=== PATIENT | female | born 1945 | race Caucasian/White ===

== ENCOUNTER 2021-11-13 08:57 | Observation (INO) | payer OTHER ==
[2021-11-08 16:59] LABS: BASOPHILS % (AUTO) 0.2 % (0.0-5.0); EOSINOPHILS % (AUTO) 1.6 % (0.0-8.0); HEMATOCRIT 37.5 % (36-48); LYMPHOCYTES % (AUTO) 22.8 % (21.0-51.0); MEAN CORPUSCULAR HEMOGLOBIN 34.1 pg (27.0-33.0); MEAN CORPUSCULAR HGB CONC 32.3 g/dL (32.0-36.0); MEAN CORPUSCULAR VOLUME 105.6 fL (79-99); NEUTROPHILS % (AUTO) 63.9 % (40.0-77.0); PLATELET COUNT (AUTO) 131 K/uL (130-400); RED BLOOD CELL COUNT(AUTO) 3.55 MIL/uL (4.00-5.50); RED CELL DISTRIBUTION WIDTH 12.2 % (11.0-15.5); WHITE BLOOD COUNT (AUTO) 4.3 K/uL (4.8-10.8)
[2021-11-08 17:14] LABS: INR 1.15 (0.85-1.15); PROTHROMBIN TIME 12.4 SEC (9.6-11.6)
[2021-11-08 17:15] LABS: PARTIAL THROMBOPLASTIN TIME 28.1 SEC (26.3-35.5)
[2021-11-12 10:15] VITALS: BP 108/66
[~2021-11-13] VITALS: Ht 154.9 cm; Wt 48.3 kg
[2021-11-13] VITALS (25 sets, daily range): BP systolic 113–155; BP diastolic 57–83
[~2021-11-13 08:57] MED LIST: CYCL-309 PO; DONE5TAB33 PO; DULO60CA64 PO; FAMO40TA7 PO; FURO20TA4 PO; ISOS60TA77 PO; MEMA28CA16 PO; META800T72 PO; METO-408 PO; POTA10CA44 PO; RAME8TAB8 PO; TRAM50TA4 PO
[2021-11-13] MEDS ORDERED: LACTATED RINGERS 1000ML 1,000 ML IV ONE (08:59)
[2021-11-13] MEDS: CEFAZOLIN SODIUM 1 GM VIAL ONE ×2 (09:28→12:41)
[2021-11-13] MEDS ORDERED: APIX2.5T PO (10:06)
[2021-11-13 10:11] LABS: CREATININE 0.8 mg/dL (0.5-1.5); POTASSIUM 4.1 mmol/L (3.5-5.1)
[2021-11-13] MEDS ORDERED: TRANEXAMIC ACID 1000MG/10ML ONE ×2 (10:53→11:41)
[2021-11-13] MEDS ORDERED: ROPIVACAINE 0.5% 5MG/ML 30ML IJ ONE (12:03)
[2021-11-13] MEDS ORDERED: LIDOCAINE PF 100MG/5ML (2%) SYRINGE 5ML ONE (12:04)
[2021-11-13] MEDS ORDERED: FENTANYL CITRATE PF 50 MCG/1 ML 2ML VIAL ONE (12:04)
[2021-11-13] MEDS ORDERED: ROCURONIUM 10MG/1ML SYR 10 MG/ML ML ONE (12:04)
[2021-11-13] MEDS ORDERED: MIDAZOLAM HCL 1 MG/ML 2ML VIAL ONE (12:04)
[2021-11-13] MEDS ORDERED: PROPOFOL 10 MG/ML 20ML VIAL IV ONE (12:04)
[2021-11-13] MEDS ORDERED: SUCCINYLCHOLINE CHLORIDE 20 MG/ML 10 ML VIAL ONE (12:04)
[2021-11-13] MEDS ORDERED: DEXAMETHASONE SOD PHOSPHATE 10MG/ML 1ML VIAL ONE (12:07)
[2021-11-13] MEDS ORDERED: EPHEDRINE SULFATE 50 MG/ML AMPULE ONE (12:34)
[2021-11-13] MEDS: METAXALONE PO SCH ×3 (13:00→19:47)
[2021-11-13] MEDS ORDERED: GLYCOPYRROLATE 1 MG/5 ML SYRINGE ONE (13:28)
[2021-11-13] MEDS ORDERED: NEOSTIGMINE 5MG/5ML SYR IV ONE (14:33)
[2021-11-13] MEDS ORDERED: HYDROCODONE/ACETAMINOPHEN 5/325 MG TAB PO PRN (15:00)
[2021-11-13] MEDS ORDERED: POTASSIUM CHLORIDE 10% ELIXIR 20 MEQ/15 ML UDCUP PO PRN (15:00)
[2021-11-13] MEDS ORDERED: POTASSIUM CHLORIDE 20MEQ/100ML 100 ML IV PRN (15:00)
[2021-11-13] MEDS ORDERED: OXYCODONE HCL 5 MG TAB PO PRN (15:00)
[2021-11-13] MEDS ORDERED: KCL 20 MEQ ERTAB PO PRN (15:00)
[2021-11-13] MEDS ORDERED: ONDANSETRON 4MG INJ IVP PRN (15:00)
[2021-11-13] MEDS ORDERED: 0.9%NACL 1000ML 1,000 ML IV SCH (15:00)
[2021-11-13] MEDS ORDERED: HYDROCODONE/ACETAMINOPHEN 10/325 MG TAB PO PRN (15:00)
[2021-11-13] MEDS ORDERED: LIDOCAINE HCL-MPF 1% 2ML VIAL IV PRN (15:00)
[2021-11-13] MEDS: ACETAMINOPHEN 500 MG TABLET PO SCH ×2 (15:00→19:47)
[2021-11-13] MEDS ORDERED: MORPHINE 4 MG SYG IVP PRN (15:00)
[2021-11-13] MEDS: TRAMADOL HCL 50 MG TABLET PO SCH ×2 (17:04→23:05)
[2021-11-13] MEDS ORDERED: DULOXETINE HCL 30 MG CAP ONE (19:24)
[2021-11-13] MEDS ORDERED: MEMANTINE HCL 5 MG TABLET ONE (19:25)
[2021-11-13] MEDS ORDERED: DONEPEZIL HCL 5 MG TAB ONE (19:25)
[2021-11-13] MEDS ORDERED: CYCLOBENZAPRINE HCL 10 MG TABLET ONE (19:25)
[2021-11-13] MEDS: CEFAZOLIN SODIUM 1 GM VIAL IVP SCH (19:45)
[2021-11-13] MEDS: MEMANTINE HCL 5 MG TABLET PO SCH (19:46)
[2021-11-13] MEDS: CYCLOBENZAPRINE HCL 10 MG TABLET PO SCH (19:46)
[2021-11-13] MEDS: METOPROLOL SUCCINATE 50 MG TAB.SR.24H PO SCH (19:54)
[2021-11-13] MEDS ORDERED: ROZEREM 8 MG PO SCH (21:00)
[2021-11-13] MEDS ORDERED: DONEPEZIL HCL 5 MG TAB PO SCH (21:00)
[2021-11-13] MEDS ORDERED: DULOXETINE HCL 30 MG CAP PO SCH (21:00)
[2021-11-14] VITALS: BP 112/54
[2021-11-14 04:00] VITALS: BP 118/58
[2021-11-14 04:08] LABS: HEMATOCRIT 34.4 % (36-48); MEAN CORPUSCULAR HEMOGLOBIN 34.2 pg (27.0-33.0); MEAN CORPUSCULAR HGB CONC 32.8 g/dL (32.0-36.0); MEAN CORPUSCULAR VOLUME 104.2 fL (79-99); RED BLOOD CELL COUNT(AUTO) 3.3 MIL/uL (4.00-5.50); RED CELL DISTRIBUTION WIDTH 12.2 % (11.0-15.5); WHITE BLOOD COUNT (AUTO) 5.7 K/uL (4.8-10.8)
[2021-11-14 04:55] LABS: CREATININE 0.9 mg/dL (0.5-1.5); POTASSIUM 4.3 mmol/L (3.5-5.1)
[2021-11-14] MEDS: CEFAZOLIN SODIUM 1 GM VIAL IVP SCH (04:59)
[2021-11-14] MEDS: TRAMADOL HCL 50 MG TABLET PO SCH ×2 (04:59→12:09)
[2021-11-14] MEDS: ACETAMINOPHEN 500 MG TABLET PO SCH (05:00)
[2021-11-14 07:35] VITALS: BP 130/64
[2021-11-14] MEDS: CYCLOBENZAPRINE HCL 10 MG TABLET PO SCH (08:57)
[2021-11-14] MEDS: METAXALONE PO SCH ×2 (08:57→11:46)
[2021-11-14] MEDS: MEMANTINE HCL 5 MG TABLET PO SCH (08:57)
[2021-11-14] MEDS: METOPROLOL SUCCINATE 50 MG TAB.SR.24H PO SCH (08:57)
[2021-11-14] MEDS ORDERED: POTASSIUM CHLORIDE 10MEQ SR TAB PO SCH (09:00)
[2021-11-14] MEDS ORDERED: POLYETHYLENE GLYCOL 3350 17 GM POWD.PACK PO SCH (09:00)
[2021-11-14] MEDS ORDERED: FAMOTIDINE 20MG TAB PO SCH (09:00)
[2021-11-14] MEDS ORDERED: ISOSORBIDE MONO 60MG SR TAB PO SCH (09:00)
[2021-11-14] MEDS ORDERED: FUROSEMIDE 20 MG TABLET PO SCH (09:00)
[2021-11-14 10:55] VITALS: BP 104/68
[2021-11-14] MEDS ORDERED: APIXABAN 2.5 MG TABLET PO SCH (18:00)
[2021-11-16] MEDS ORDERED: BISACODYL 10 MG SUPP.RECT RC PRN (15:00)
== END 2021-11-14 12:00 | disposition home or self-care (01) ==
LOC: DAH 08:57 → DAHIP 08:58 → DAH 08:58 → 4AH 15:54
PROVIDERS: ADMIT Orthopaedic Surgery; ATTEND Orthopaedic Surgery
DX: M19.011 Primary osteoarthritis, right shoulder (principal); Z20.822 Contact with and (suspected) exposure to COVID-19; E78.00 Pure hypercholesterolemia, unspecified; I25.10 Atherosclerotic heart disease of native coronary artery without angina pectoris; I11.0 Hypertensive heart disease with heart failure; I50.9 Heart failure, unspecified; I48.91 Unspecified atrial fibrillation; Z95.4 Presence of other heart-valve replacement; Z86.79 Personal history of other diseases of the circulatory system; Z79.899 Other long term (current) drug therapy
CPT/HCPCS: 23472; 36415 ×3; 64415; 73030 ×2; 76942; 80048 ×2; 82948 ×3; 85025; 85027; 85610; 85730; 87635; 87641; 93005; 96374; 96376; 97161; 97530; A4215 ×2; A4221; A4222; A4223; A4565; A4600; A4649 ×4; A4663; A5120; A6207; A6223; A6260; C1713; C1776; C9803; G0378 ×20; J0330; J0690 ×3; J1100; J2001; J2250; J2704; J2710; J2795; J3010; J3490 ×4; J7120 ×2